=== PATIENT | female | born 1990 | race Caucasian/White ===

== ENCOUNTER 2020-02-28 17:31 | Emergency (ER) | payer SELFPAY ==
[~2020-02-28] VITALS: Ht 172.7 cm; Wt 100.0 kg
[~2020-02-28 17:31] MED LIST: ALBUTEROL SUL0.083 % IN; ALBUTEROL0.5 % INH; ALBUTEROL2.5 MG/31 IN; AMOXICILLIN500 MG OR; AMOXICILLIN500 MG PO; AUGMENTIN875TAB PO; AZITHROMYCIN250 MG PO; BENADRYL 50MG C50 MG OR; CIPRO500 MG OR; CIPRO500 MG PO; CIPROFLOXACN500 MG PO; FLAGYL500 MG OR; FLINTSTONE1 OR; FLINTSTONE1 PO; KEFLEX500 MG PO; LORTAB 7.5 PO; LORTAB5 PO; MUPIROCIN2 % EX; NAPROSYN500 MG OR; NAPROSYN500 MG PO; NAPROXEN; NO HOME MEDS; ONDANSETRON4 MG PO; PRENATA3 OR; PRENATA6 PO; PREVACID30 M2 PO; PROAIR HFA IN; REGLAN10 MG OR; VENTOLIN HF1 IN; VIGAMOX OD; XANAX0.25 MG PO; ZITHROMAX250 MG PO; ZOFRAN ODT4 MG PO; ZPAK PO; [UNRECOGNIZED DRUG - OTHER]
[2020-02-28] MEDS ORDERED: SERTRALINE50 MG PO (17:50)
[2020-02-28 18:30] VITALS: BP 128/89
[2020-02-28] MEDS ORDERED: NAPROXEN500 MG PO (18:30)
== END 2020-02-28 18:32 | disposition home or self-care (01) | DRG 605 ==
LOC: ED 17:31
DX: S60.221A Contusion of right hand, initial encounter (principal); M79.89 Other specified soft tissue disorders; J45.909 Unspecified asthma, uncomplicated; Z86.19 Personal history of other infectious and parasitic diseases; Y04.2XXA Assault by strike against or bumped into by another person, initial encounter

== ENCOUNTER 2020-06-14 11:47 | Emergency (ER) | payer SELFPAY ==
[~2020-06-14] VITALS: Ht 172.7 cm; Wt 100.0 kg
[~2020-06-14 11:47] MED LIST changes: +NAPROXEN500 MG PO; +SERTRALINE50 MG PO
[2020-06-14 16:38] LABS: IMMATURE GRANULOCYTES 0.4 % (0.0-5.0); MEAN CELL VOLUME 86.9 fL CALC (80.0-100.0); MEAN CORPUSCULAR HGB 29.6 pG CALC (26.0-32.0); MEAN CORPUSCULAR HGB CONC 34.1 g/dL CAL (32.0-36.0); NEUT# 5.13 thou/uL (2.00-7.15); RED BLOOD COUNT 4.05 mill/uL (4.20-5.60); RED CELL DISTRI WIDTH 13.9 % (11.5-15.5)
[2020-06-14 16:42] LABS: HEMATOCRIT 35.2 % (37.0-47.0)
[2020-06-14 17:01] LABS: ANION GAP 11 (6-22 (CALC)); BUN 10 mg/dL (7-17); BUN/CREATININE RATIO 14 (12-20 (CALC)); CARBON DIOXIDE 30 mmol/l (22-30); CHLORIDE 104 mmol/l (95-108); CREATININE 0.8 mg/dL (0.5-1.0); GFR > 60 ML/MIN (>=60 (CALC)); GFR FOR AFR.AMER. > 60 ML/MIN (>=60 (CALC)); POTASSIUM 3.7 mmol/l (3.5-5.1); SODIUM 140 mmol/l (137-146)
[2020-06-14] MEDS ORDERED: CYCLOBENZAPRINE10 MG PO (18:54)
[2020-06-14] MEDS ORDERED: NAPROXEN500 MG PO (18:54)
[2020-06-14 19:08] VITALS: BP 118/68
== END 2020-06-14 19:27 | disposition home or self-care (01) | DRG 93 ==
LOC: ED 11:47
PROVIDERS: Family Medicine
DX: R20.2 Paresthesia of skin (principal); J45.909 Unspecified asthma, uncomplicated; F41.9 Anxiety disorder, unspecified; B19.20 Unspecified viral hepatitis C without hepatic coma

== ENCOUNTER 2020-12-20 12:31 | Emergency (ER) | payer SELFPAY ==
[~2020-12-20] VITALS: Ht 172.7 cm; Wt 100.0 kg
[~2020-12-20 12:31] MED LIST changes: +CYCLOBENZAPRINE10 MG PO
[2020-12-20 15:21] VITALS: BP 138/63
== END 2020-12-20 15:25 | disposition home or self-care (01) | DRG 556 ==
LOC: ED 12:31
PROC: 2W3QX1Z Immobilization of Right Lower Leg using Splint (ICD-10-PCS; principal; 2020-12-20)
DX: M25.571 Pain in right ankle and joints of right foot (principal); J45.909 Unspecified asthma, uncomplicated; F41.9 Anxiety disorder, unspecified; W10.9XXA Fall (on) (from) unspecified stairs and steps, initial encounter

== ENCOUNTER 2021-03-09 09:07 | Emergency (ER) | payer OTHER ==
[~2021-03-09] VITALS: Ht 172.7 cm; Wt 100.0 kg
[2021-03-09 09:44] LABS: IMMATURE GRANULOCYTES 0.4 % (0.0-5.0); MEAN CELL VOLUME 87.8 fL CALC (80.0-100.0); MEAN CORPUSCULAR HGB 29.7 pG CALC (26.0-32.0); MEAN CORPUSCULAR HGB CONC 33.9 g/dL CAL (32.0-36.0); NEUT# 2.88 thou/uL (2.00-7.15); RED BLOOD COUNT 4.74 mill/uL (4.20-5.60); RED CELL DISTRI WIDTH 14.6 % (11.5-15.5)
[2021-03-09 09:47] LABS: HEMATOCRIT 41.6 % (37.0-47.0); HEMOGLOBIN 14.1 g/dl (12.0-16.0)
[2021-03-09 09:54] LABS: ALKALINE PHOSPHATASE 80 u/l (38-126); ANION GAP 16 (6-22 (CALC)); BILIRUBIN, TOTAL 1.1 mg/dL (0.0-1.4); BUN 14 mg/dL (7-17); BUN/CREATININE RATIO 15 (12-20 (CALC)); CARBON DIOXIDE 25 mmol/l (22-30); CHLORIDE 102 mmol/l (95-108); CREATININE 0.9 mg/dL (0.5-1.0); GFR > 60 ML/MIN (>=60 (CALC)); GFR FOR AFR.AMER. > 60 ML/MIN (>=60 (CALC)); SGOT/AST 32 u/l (14-36); SODIUM 139 mmol/l (137-146); TOTAL PROTEIN 9.3 g/dL (6.3-8.2)
[2021-03-09] MEDS ORDERED: ADVAIR DISKU IN (11:07)
[2021-03-09] MEDS ORDERED: PROVENTIL0.083 % IN (11:07)
[2021-03-09] MEDS ORDERED: DECADRON4 MG PO (11:07)
[2021-03-09] MEDS ORDERED: ZPAK PO (11:07)
[2021-03-09] MEDS ORDERED: PROAIR HFA108 MCG/AC PO (11:07)
[2021-03-09 11:21] VITALS: BP 133/64
== END 2021-03-09 11:29 | disposition home or self-care (01) | DRG 178 ==
LOC: ED 09:07
PROVIDERS: Family Medicine
DX: U07.1 COVID-19 (principal); J45.901 Unspecified asthma with (acute) exacerbation; F41.9 Anxiety disorder, unspecified; F17.200 Nicotine dependence, unspecified, uncomplicated; Z86.19 Personal history of other infectious and parasitic diseases
CPT/HCPCS: J3475

== ENCOUNTER 2022-08-30 14:29 | Emergency (ER) | payer OTHER ==
[~2022-08-30] VITALS: Ht 172.7 cm; Wt 103.4 kg
[2022-08-30] VITALS (10 sets, daily range): BP systolic 109–141; BP diastolic 61–93
[~2022-08-30 14:29] MED LIST changes: +ADVAIR DISKU IN; +DECADRON4 MG PO; +PROAIR HFA108 MCG/AC PO; +PROVENTIL0.083 % IN
[2022-08-30 15:43] LABS: URINE BILIRUBIN - DIPSTICK NEGATIVE (NEGATIVE); URINE BLOOD DIPSTICK NEGATIVE (NEGATIVE); URINE COLOR YELLOW; URINE GLUCOSE - DIPSTICK NEGATIVE (NEGATIVE); URINE KETONE NEGATIVE (NEGATIVE); URINE LEUK ESTERASE NEGATIVE (NEGATIVE); URINE PROTEIN - DIPSTICK NEGATIVE (NEG-TRACE); URINE SPECIFIC GRAVITY 1.025; URINE UROBILINOGEN - DIPSTICK 0.2 E.U./dL (0.2)
[2022-08-30 15:44] LABS: BASO% 0.4 % (0-3); EOS% 1.6 % (0-8); HEMATOCRIT 38.3 % (37.0-47.0); HEMOGLOBIN 12.8 g/dl (12.0-16.0); IMMATURE GRANULOCYTES 0.2 % (0.0-5.0); LYMPH% 23.1 % (15-41); MEAN CELL VOLUME 90.3 fL CALC (80.0-100.0); MEAN CORPUSCULAR HGB 30.2 pG CALC (26.0-32.0); MEAN CORPUSCULAR HGB CONC 33.4 g/dL CAL (32.0-36.0); MONO% 5.3 % (2-13); NEUT# 7.11 thou/uL (2.00-7.15); NEUT% 69.4 % (42-76); RED BLOOD COUNT 4.24 mill/uL (4.20-5.60); RED CELL DISTRI WIDTH 13.1 % (11.5-15.5)
[2022-08-30 15:44] LABS: URINE NITRITE - DIPSTICK NEGATIVE (Negative)
[2022-08-30 16:09] LABS: ALBUMIN 4.7 g/dL (3.2-5.0); ALKALINE PHOSPHATASE 62 u/l (38-126); ANION GAP 11 (6-22 (CALC)); BILIRUBIN, TOTAL 0.7 mg/dL (0.02-1.3); BUN 11 mg/dL (7-17); BUN/CREATININE RATIO 16 (12-20 (CALC)); CARBON DIOXIDE 28 mmol/l (22-30); CHLORIDE 103 mmol/l (95-108); CREATININE 0.7 mg/dL (0.5-1.0); GFR FOR AFR.AMER. > 60 ML/MIN (>=60 (CALC)); GFR OTHER RACES > 60 ML/MIN (>=60 (CALC)); LIPASE 80 u/l (23-300); POTASSIUM 3.5 mmol/l (3.5-5.1); SGOT/AST 38 u/l (14-36); SODIUM 138 mmol/l (137-146); TOTAL PROTEIN 8.2 g/dL (6.3-8.2)
[2022-08-30] MEDS ORDERED: PROGESTERONE200 MG PO (19:56)
== END 2022-08-30 20:23 | disposition home or self-care (01) | DRG 761 ==
LOC: ED 14:29
PROVIDERS: Family Medicine
DX: N91.2 Amenorrhea, unspecified (principal); R10.9 Unspecified abdominal pain; F17.290 Nicotine dependence, other tobacco product, uncomplicated; Z86.19 Personal history of other infectious and parasitic diseases
CPT/HCPCS: Q9967

== ENCOUNTER 2023-08-07 10:10 | Emergency (ER) | payer SELFPAY ==
[~2023-08-07] VITALS: Ht 172.7 cm; Wt 95.2 kg
[~2023-08-07 10:10] MED LIST changes: +PROGESTERONE200 MG PO
[2023-08-07 11:32] VITALS: BP 157/93
[2023-08-07 11:46] VITALS: BP 135/84
[2023-08-07] MEDS ORDERED: SODIUM CHLORIDE 0.9% 1,000 ML IV ONE (12:50)
[2023-08-07] MEDS ORDERED: METOCLOPRAMIDE HCL 10 MG/2 ML SDV IV ONE (12:50)
[2023-08-07] MEDS ORDERED: KETOROLAC TROMETHAMINE 30 MG/ML SDV IV ONE (12:50)
[2023-08-07] MEDS ORDERED: DiphenhydrAMINE HCL 50 MG/ML SDV IV ONE (12:50)
[2023-08-07 13:25] VITALS: BP 164/91
[2023-08-07 13:30] VITALS: BP 132/88
[2023-08-07 13:32] LABS: URINE BILIRUBIN - DIPSTICK Negative (NEGATIVE); URINE BLOOD DIPSTICK Negative (NEGATIVE); URINE GLUCOSE - DIPSTICK Negative (NEGATIVE); URINE KETONE Negative (NEGATIVE); URINE LEUK ESTERASE Negative (NEGATIVE); URINE NITRITE - DIPSTICK Negative (Negative); URINE PROTEIN - DIPSTICK Negative (NEG-TRACE); URINE SPECIFIC GRAVITY 1.015; URINE UROBILINOGEN - DIPSTICK 0.2 E.U./dL (0.2)
[2023-08-07 13:33] LABS: URINE COLOR Yellow
[2023-08-07 13:34] LABS: BASO% 0.4 % (0-3); EOS% 1.5 % (0-8); HEMATOCRIT 37.9 % (37.0-47.0); IMMATURE GRANULOCYTES 0.1 % (0.0-5.0); LYMPH% 24.5 % (15-41); MEAN CELL VOLUME 88.8 fL CALC (80.0-100.0); MEAN CORPUSCULAR HGB 30.4 pG CALC (26.0-32.0); MEAN CORPUSCULAR HGB CONC 34.3 g/dL CAL (32.0-36.0); MONO% 4.4 % (2-13); NEUT# 4.72 thou/uL (2.00-7.15); NEUT% 69.1 % (42-76); RED BLOOD COUNT 4.27 mill/uL (4.20-5.60); RED CELL DISTRI WIDTH 13.1 % (11.5-15.5)
[2023-08-07 13:44] LABS: ALBUMIN 4.8 g/dL (3.2-5.0); ALKALINE PHOSPHATASE 64 u/l (38-126); ANION GAP 10 (6-22 (CALC)); BUN 11 mg/dL (7-17); BUN/CREATININE RATIO 13 (12-20 (CALC)); CARBON DIOXIDE 29 mmol/l (22-30); CHLORIDE 106 mmol/l (95-108); CREATININE 0.8 mg/dL (0.5-1.0); GFR FOR AFR.AMER. > 60 ML/MIN (>=60 (CALC)); GFR OTHER RACES > 60 ML/MIN (>=60 (CALC)); POTASSIUM 3.9 mmol/l (3.5-5.1); SGOT/AST 64 u/l (14-36); SODIUM 141 mmol/l (137-146); TOTAL PROTEIN 8.2 g/dL (6.3-8.2)
[2023-08-07 13:45] VITALS: BP 132/83
[2023-08-07 13:45] LABS: BILIRUBIN, TOTAL 1.4 mg/dL (0.02-1.3)
[2023-08-07] MEDS ORDERED: IMITREX50 M1 PO (14:49)
[2023-08-07 15:07] VITALS: BP 132/83
== END 2023-08-07 15:22 | disposition home or self-care (01) | DRG 103 ==
LOC: ED 10:10
PROVIDERS: Family Medicine
DX: R51.9 Headache, unspecified (principal); I10 Essential (primary) hypertension; J45.909 Unspecified asthma, uncomplicated; F17.200 Nicotine dependence, unspecified, uncomplicated